=== PATIENT | male | born 1990 | race Caucasian/White ===

== ENCOUNTER → 2018-12-04 15:38 | Outpatient (CLI) | payer OTHER, SELFPAY ==
[2018-12-04 17:41] LABS: Absolute Lymphocyte Count 2.77 X10^3/ul (0.83-4.51); Absolute Neutrophil Count 4.5 X10^3/uL (2.0-7.7); Basophil# 0.05 X10^3/uL; Basophil% 0.6 % (0-1); Eosinophil# 0.25 X10^3/uL; Hematocrit 45.6 % (40-54); Hemoglobin 15.3 g/dl (13.0-16.5); Lymphocyte # 2.77 X10^3/ul (4.0); Mean Corp Hgb Conc 33.6 g/gl (32-36); Mean Corpuscular Hgb 27.4 pg (27.0-32.0); Mean Corpuscular Volume 81.7 fL (80-94); Monocyte# 0.82 X10^3/uL; Monocyte% 9.8 % (0-10); Neutrophil # 4.46 X10^3/uL (2.7-7.7); Neutrophil % 53.1 % (47-70); Platelet Count 309 K/mm3 (150-450); Red Blood Count 5.58 M/mm3 (4.6-6.2); White Blood Count 8.4 K/mm3 (4.4-11.0)
[2018-12-04 17:45] LABS: AST(SGOT) 27 U/L (15-37); Alanine Aminotransfer ALT/SGPT 69 U/L (16-61); Albumin, Serum 4.1 g/dL (3.2-5.0); Alkaline Phosphatase 73 U/L (45-117); Anion Gap 5 (5-15); BUN 18 mg/dL (7-18); BUN/Creat Ratio 18.1 RATIO (10-20); Bilirubin, Direct 0.07 mg/dL (0.00-0.30); Calcium,Total 9.2 mg/dL (8.5-10.1); Chloride 106 mmol/L (98-107); EST Glomerular Filtration Rate 96 mL/min (>60); Est Glom Filt Rate - Afr Amer 116 mL/min (>60); Globulin 3.6 g/dL (2.2-4.2); Glucose 97 mg/dL (74-106); Potassium 4.6 mmol/L (3.5-5.1); Protein, Total 7.7 g/dL (6.4-8.2); Sodium Level 142 mmol/L (136-145)
[2018-12-04 17:52] LABS: POSITIVE COUNT NO; POSITIVE DIFFERENTIAL NO; POSITIVE MORPHOLOGY NO
[2018-12-08 03:06] LABS: QNTFERON TB Mitogen Value > 10.00 IU/mL (.); QNTFERON TB Nil Value 0.03 IU/mL (.); QNTFERON TB1+ Ag Value 0.02 IU/mL (.); QNTFERON TB2+ Ag Value 0.03 IU/mL (.)
[2018-12-08 15:22] LABS: QNTIFERON TB Positive Criteria Negative (Negative)
== END ==
PROVIDERS: Family Provider Family Medicine; PCP Family Medicine; Referring Provider Dermatology Pediatric Dermatology; Visit Provider Dermatology Pediatric Dermatology
DX: L40.0 Psoriasis vulgaris (principal); D22.5 Melanocytic nevi of trunk
CPT/HCPCS: 36415; 80048; 80076; 85025; 86480

== ENCOUNTER → 2020-04-02 16:33 | Outpatient (CLI) | payer MEDICAID, SELFPAY ==
[2020-04-02 18:23] LABS: Absolute Lymphocyte Count 3.26 X10^3/uL (0.83-4.51); Absolute Neutrophil Count 5.8 X10^3/uL (2.0-7.7); Basophil# 0.05 X10^3/uL; Basophil% 0.5 % (0-1); Eosinophil# 0.34 X10^3/uL; Eosinophils% 3.3 % (0-5); Hematocrit 47.5 % (40-54); Hemoglobin 15.2 g/dL (13.0-16.5); Lymphocyte # 3.26 X10^3/ul (4.0); Lymphocyte % 31.2 % (19-41); Mean Corpuscular Hgb 27.5 pg (27.0-32.0); Mean Corpuscular Volume 85.9 fL (80-94); Mean Platelet Vol. 11.1 fl (6.2-12.0); Monocyte# 0.98 X10^3/uL; Monocyte% 9.4 % (0-10); NRBC Flagged by Analyzer 0 % (0-5); Neutrophil # 5.78 X10^3/uL (2.7-7.7); Neutrophil % 55.3 % (47-70); Platelet Count 314 K/mm3 (150-450); RBC Distribution Width CV 14.2 % (11.6-14.6); RBC Distribution Width SD 44.8 fl (35.1-43.9); Red Blood Count 5.53 M/mm3 (4.6-6.2); White Blood Count 10.4 K/mm3 (4.4-11.0)
[2020-04-02 18:39] LABS: AST(SGOT) 21 U/L (15-37); Alanine Aminotransfer ALT/SGPT 59 U/L (16-61); Albumin, Serum 4.1 g/dL (3.2-5.0); Alkaline Phosphatase 77 U/L (45-117); Anion Gap 5 (5-15); BUN 20 mg/dL (7-18); BUN/Creat Ratio 17.9 RATIO (10-20); Bilirubin, Direct 0.11 mg/dL (0.00-0.30); Calcium,Total 9.4 mg/dL (8.5-10.1); Chloride 105 mmol/L (98-107); Creatinine, Serum 1.12 mg/dL (0.70-1.30); EST Glomerular Filtration Rate 83 mL/min (>60); Est Glom Filt Rate - Afr Amer 100 mL/min (>60); Globulin 3.6 g/dL (2.2-4.2); Glucose 89 mg/dL (74-106); Potassium 4.1 mmol/L (3.5-5.1); Protein, Total 7.7 g/dL (6.4-8.2); Sodium Level 139 mmol/L (136-145)
[2020-04-06 03:06] LABS: QNTFERON TB Mitogen Value > 10.00 IU/mL (.); QNTFERON TB Nil Value 0.02 IU/mL (.); QNTFERON TB1+ Ag Value 0.02 IU/mL (.); QNTFERON TB2+ Ag Value 0.03 IU/mL (.)
[2020-04-06 04:01] LABS: QNTIFERON TB Positive Criteria Negative (Negative)
== END ==
PROVIDERS: PCP Physician Assistant; Referring Provider Physician Assistant; Visit Provider Physician Assistant
DX: L40.0 Psoriasis vulgaris (principal); Z79.899 Other long term (current) drug therapy
CPT/HCPCS: 36415; 80048; 80076; 85025; 86480

== ENCOUNTER → 2021-03-16 09:48 | Outpatient (CLI) | payer OTHER, SELFPAY ==
[2021-03-16 12:03] LABS: Absolute Lymphocyte Count 2.87 X10^3/uL (0.83-4.51); Absolute Neutrophil Count 5.1 X10^3/uL (2.0-7.7); Basophil# 0.05 X10^3/uL; Basophil% 0.6 % (0-1); Eosinophil# 0.19 X10^3/uL; Eosinophils% 2.1 % (0-5); Hematocrit 48.1 % (40-54); Hemoglobin 15.3 g/dL (13.0-16.5); Lymphocyte # 2.87 X10^3/ul (0.83-4.51); Lymphocyte % 32.2 % (19-41); Mean Corp Hgb Conc 31.8 g/dL (32-36); Mean Corpuscular Hgb 26.8 pg (27.0-32.0); Mean Corpuscular Volume 84.2 fL (80-94); Mean Platelet Vol. 11.2 fl (6.2-12.0); Monocyte# 0.71 X10^3/uL; NRBC Flagged by Analyzer 0 % (0-5); Neutrophil # 5.07 X10^3/uL (2.7-7.7); Neutrophil % 56.8 % (47-70); Platelet Count 338 K/mm3 (150-450); RBC Distribution Width CV 13.6 % (11.6-14.6); RBC Distribution Width SD 41.9 fl (35.1-43.9); Red Blood Count 5.71 M/mm3 (4.6-6.2); White Blood Count 8.9 K/mm3 (4.4-11.0)
[2021-03-16 12:15] LABS: ALB/GLOB Ratio 1.2 RATIO (0.9-2.4); AST(SGOT) 16 U/L (15-37); Alanine Aminotransfer ALT/SGPT 40 U/L (16-61); Albumin, Serum 4.2 g/dL (3.2-5.0); Alkaline Phosphatase 71 U/L (45-117); Anion Gap 5 (5-15); BUN 18 mg/dL (7-18); BUN/Creat Ratio 16.8 RATIO (10-20); Bilirubin, Direct 0.15 mg/dL (0.00-0.30); Chloride 106 mmol/L (98-107); Creatinine, Serum 1.07 mg/dL (0.70-1.30); EST Glomerular Filtration Rate 87 mL/min (>60); Est Glom Filt Rate - Afr Amer 105 mL/min (>60); Globulin 3.6 g/dL (2.2-4.2); Glucose 99 mg/dL (74-106); Potassium 3.6 mmol/L (3.5-5.1); Protein, Total 7.8 g/dL (6.4-8.2); Sodium Level 139 mmol/L (136-145)
[2021-03-19 06:07] LABS: HEPATITIS B SURFACE AG Negative (Negative); Hepatitis A AB, Total Negative (Negative); Hepatitis A IgM Antibody Negative (Negative); Hepatitis B Core AB IgM Negative (Negative); Hepatitis B Core Ab Total Negative (Negative); Hepatitis C Ab <0.1 s/co ratio (0.0-0.9); QNTFERON TB Mitogen Value > 10.00 IU/mL (.); QNTFERON TB Nil Value 0.01 IU/mL (.); QNTFERON TB1+ Ag Value 0.05 IU/mL (.); QNTFERON TB2+ Ag Value 0.04 IU/mL (.)
[2021-03-19 10:45] LABS: Hep B Surface Antibodies Non Reactive (.); QNTIFERON TB Positive Criteria Negative (Negative)
== END ==
PROVIDERS: PCP Physician Assistant; Referring Provider Physician Assistant Medical; Visit Provider Physician Assistant Medical
DX: L40.0 Psoriasis vulgaris (principal); Z79.899 Other long term (current) drug therapy
CPT/HCPCS: 36415; 80053; 82248; 85025; 86480; 86704; 86705; 86706; 86708; 86709; 86803; 87340

== ENCOUNTER → 2022-03-01 | Outpatient (CLI) | payer OTHER, SELFPAY ==
[2022-03-02 08:24] LABS: Hepatitis B Surface Antibody Non-Reactive
[2022-03-03 14:09] LABS: HEPATITIS B SURFACE AG Negative (Negative); Hep C Antibodies <0.1 s/co ratio (0.0-0.9); Hepatitis A IgM Antibody Negative (Negative); Hepatitis B Core AB IgM Negative (Negative); QNTFERON TB Mitogen Value > 10.00 IU/mL (.); QNTFERON TB Nil Value 0.01 IU/mL (.); QNTFERON TB1+ Ag Value 0.04 IU/mL (.); QNTFERON TB2+ Ag Value 0.05 IU/mL (.)
[2022-03-03 15:08] LABS: Hepatitis A AB, Total Negative (Negative); QNTIFERON TB Positive Criteria Negative (Negative)
== END | disposition home or self-care (01) ==
LOC: LABSPEC 23:08 → LAB 23:09
PROVIDERS: PCP Physician Assistant; Visit Provider Dermatology Pediatric Dermatology
DX: L40.0 Psoriasis vulgaris (principal); Z79.899 Other long term (current) drug therapy
CPT/HCPCS: 36415; 80074; 86480; 86706; 86708

== ENCOUNTER 2022-06-13 09:29 | Day surgery (SDC) | payer OTHER, SELFPAY ==
--- NOTE | 2022-06-13 | LES_PTH ---
PATIENT: POOJA LOPEZ LOC: [facility] [place] U#:[id number] AGE/SX: 31/M ROOM: RE06/13/[address]: Dr. Skyler Ryan MD : 1990 BED: DIS: 06/13/2022 SPEC #: [id number] RECD: 06/13/22 13:04 STATUS: RADU NAYELI #: [id number] DOM: 06/13/22 00:[address]: Skyler Ryan DEPT: SURGICAL PATHOLOGY RECD BY: Brandan Velez ENTERED: 06/13/22 13:04 SP TYPE: Lesion OTHR DR: YOHAN Dunbar Tissues: Skin of external auditory canal Procedures: Surgery Specimen Level IV HEADER OPERATION: Excision, ear canal mass PRE-OP DIAGNOSIS: Benign neoplasm of skin of right ear and external auricular canal TISSUE SUBMITTED: Right ear canal lesion MICROSCOPIC DIAGNOSIS Right ear canal lesion, biopsy: Benign fibroepithelial polyp. AM:eileen 06/14/2022 COMMENT Case has been reviewed in consultation with Dr. uRth who concurs with the above diagnosis. IDC:FABRICE MICROSCOPIC DESCRIPTION Slides are reviewed. GROSS DESCRIPTION Received in fixative is one container labeled with the patient's name and designated right ear canal lesion. The specimen consists of a piece of castillo-white soft tissue measuring 0.5 x 0.3 x 0.3 cm. The entire specimen is submitted in one cassette. / FABRICE:eileen 06/13/2022 TC:5 CPT: 65824
[2022-06-13 09:59] VITALS: BP 127/70; PULSE 71; RESP 18; TEMP 36.9; O2SAT 94; BMI 33.2
--- NOTE | 2022-06-13 11:14 | PCM.DC.SUM ---
Providers Primary Care Physician: YOHAN Dunbar Reason For Visit: RT EXCISION EAR CANAL MASS Medications at Discharge Home Medications guselkumab 100 mg/mL subcutaneous syringe (Tremfya) 100 mg subcut Q60D 06/06/22 Weight / BMI Weight Weight: 99.1 kg Body Mass Index (BMI) 33.2 D/C Instructions Discharge Diet: No restrictions Discharge Activity: Return to Normal Activity Additional Dressing/Incision Instructions: Apply antibioitic ointment to sutures twice a day. Keep in the incision dry for 1 week. Please Follow Up With: Skyler Ryan MD When: 2 weeks Meaningful Use Info Meaningful Use Diagnoses (Choose all that apply): None applicable Discharge Plan Admission Attending Provider: Skyler Ryan Primary Care Provider: Ch[place] Judd Discharge Orders/Prescriptions Prescriptions: No Action Tremfya 100 mg/mL syringe 100 mg SUBCUT Q60D Label Comments: INJECT 1 ML (100 MG)NSUBCUTANEOUSLY EVERY 8 WEEKS DIRECTED Referrals / Follow Up: Chico Judd PA [Primary Care Provider] - Disposition Disposition (needs filled in before D/C Order can be placed): Home, Self Care
[2022-06-13] MEDS: Lidocaine 2% /Epi 1:100 (50ml) 50 ML Vial (11:24)
--- NOTE | 2022-06-13 11:36 | OP.PCM_ITS ---
Report of Operation Date of Procedure: 06/13/22 Pre-Operative Diagnosis: right ear canal lesion Post-Operative Diagnosis: same Surgery/Procedure Performed:: Excision right ear canal lesion Description of Surgical Findings:: Surgeon: Skyler Ryan Type of Anesthesia: Local MAC Anesthesiologist: Wili Carias Estimated Blood Loss (mL): minimal Description of Procedure: The patient was taken to the operating room on 06/13/2022. He is placed in supine position on the operating room table. He is given sufficient local MAC anesthesia. The right ear was prepped and draped sterilely. 1% lidocaine with epinephrine was injected into the right external auditory canal. After sufficient vasoconstriction and anesthesia, the lesion was excised in an ellipse with a straight [place] blade. Hemostasis was achieved with monopolar cautery. I then placed antibiotic ointment onto the 3 x 3 mm excised area. A cottonball was placed in the ear. Patient was then brought to the recovery room in stable condition. Blood loss minimal, replacement none. Sponge, needle, and instrument count were correct at the end of the procedure.
[2022-06-13] MEDS: Bacitracin 500 UNITS/GM PACKET (11:37)
[2022-06-13 11:45] VITALS: BP 119/80; BP 127/70; PULSE 60; RESP 16; TEMP 36.8; O2SAT 100
[2022-06-13 11:50] VITALS: BP 122/62; BP 127/70; PULSE 68; RESP 16; O2SAT 97
[2022-06-13 11:55] VITALS: BP 121/56; BP 127/70; PULSE 59; RESP 16; O2SAT 97
[2022-06-13 11:58] VITALS: BP 107/87; BP 127/70; PULSE 61; RESP 16; TEMP 36.6; O2SAT 98
[2022-06-13 12:12] VITALS: BP 127/70
== END 2022-06-13 12:15 | disposition home or self-care (01) ==
LOC: SDC 09:32 → AC 09:35
PROVIDERS: PCP Physician Assistant; Referring Provider Otolaryngology; Visit Provider Otolaryngology
PROC: (CPT 69145; principal; 2022-06-13 10:35)
DX: D23.21 Other benign neoplasm of skin of right ear and external auricular canal (principal); F17.210 Nicotine dependence, cigarettes, uncomplicated
CPT/HCPCS: 69145; 00120; 88305; J7120; J2405

== ENCOUNTER → 2023-06-29 | Outpatient (CLI) | payer OTHER, SELFPAY ==
[2023-07-03 15:07] LABS: QNTFERON TB Mitogen Value > 10.00 IU/mL (.); QNTFERON TB Nil Value 0 IU/mL (.); QNTFERON TB2+ Ag Value 0.01 IU/mL (.); QNTIFERON TB Positive Criteria Negative (Negative)
== END | disposition home or self-care (01) ==
LOC: LAB 07:42
PROVIDERS: PCP Physician Assistant; Visit Provider Dermatology
DX: L40.0 Psoriasis vulgaris (principal); L40.59 Other psoriatic arthropathy; Z79.899 Other long term (current) drug therapy
CPT/HCPCS: 36415; 86480